=== PATIENT | male | born 1940 | race Caucasian/White ===

== ENCOUNTER 2017-03-19 13:19 | Observation (INO) | payer OTHER ==
[~2017-03-19] VITALS: Ht 182.9 cm; Wt 125.4 kg
[~2017-03-19 13:19] MED LIST: ASPIRIN EC325 MG PO; BYSTOLIC5 MG PO; CELEBREX200 MG PO; Coumadin,Jantoven PO; Cozaar PO; ECOTRIN325 MG PO; FENOFIBRATE160 M1 PO; FENOFIBRATE160 MG PO; FOLIC ACID1 MG PO; LOFIBRA,TRIGLI160 MG PO; LOSARTAN POTAS100 MG PO; LOSARTAN-HCTZ1 EAC1 PO; LYRICA50 MG PO; Lovenox SC; NAPROSYN500 MG PO; NAPROXEN500 MG PO; NORCO 5/3251 TABLET PO; PRILOSEC OTC20 MG PO; PRILOSEC20.6 MG PO; Percocet 5/325,Endoc PO; VITAMIN B-6100 MG PO
[2017-03-19 14:03] LABS: HEMATOCRIT 41.7 % (38.0-50.0); HEMOGLOBIN 13.9 G/DL (12.5-16.6); MCH 32.5 PG (29.0-34.0); MCHC 33.3 G/DL (30.0-36.0); MCV 97.4 FL (86-99); PLATELET COUNT 232 K/uL (156-360); RBC DIS.WIDTH-CV 13.1 % (11.8-14.6); RBC DIS.WIDTH-SD 46.6 % (39-53); RED BLOOD COUNT 4.28 M/uL (4.00-5.50); WHITE BLOOD COUNT 6.6 K/uL (4.1-10.2)
[2017-03-19 14:12] LABS: ALBUMIN 3.9 g/dL (3.2-4.8); CHLORIDE 111 mEq/L (99-109); POTASSIUM 4.6 mEq/L (3.7-5.4); SODIUM 144 mEq/L (136-147)
[2017-03-19 14:14] LABS: GLUCOSE 80 mg/dL (70-99); TOTAL PROTEIN 7.5 g/dL (6.4-8.3)
[2017-03-19 14:16] LABS: TOTAL BILIRUBIN 0.3 mg/dL (0.0-1.0)
[2017-03-19 14:17] LABS: ALKALINE PHOSPHATASE 52 IU/L (3-129)
[2017-03-19 14:18] LABS: CREATININE 1.1 mg/dL (0.6-1.3); GFR ESTIMATE (CALCULATED) > 59 mL/min/ (58.99-99999)
[2017-03-19 14:19] LABS: AST (GOT) 52 IU/L (2-34); UREA NITROGEN (BUN) 27 mg/dL (9-23)
[2017-03-19 14:21] LABS: ALT (GPT) 55 IU/L (3-49)
[2017-03-19 14:24] LABS: TROP-I INTERPRETATION NEGATIVE; TROPONIN-I 0.03 ng/mL (0.0-0.30)
[2017-03-19 17:38] LABS: TROP-I INTERPRETATION NEGATIVE; TROPONIN-I 0.02 ng/mL (0.0-0.30)
[2017-03-19 17:56] LABS: HDL CHOLESTEROL 40 MG/DL (Desirable>=40); LDL CHOLESTEROL 63 mg/dL (Desirable<100); NON-HDL CHOLESTEROL 92 mg/dL (Desirable<160); TOTAL CHOLESTEROL 132 mg/dL (Desirable<200); TRIGLYCERIDES 145 MG/DL (Normal: <150)
[2017-03-19 18:00] VITALS: BP 170/76
[2017-03-19 19:30] VITALS: BP 137/74
[2017-03-19 22:05] LABS: TROP-I INTERPRETATION NEGATIVE; TROPONIN-I < 0.01 ng/mL (0.0-0.30)
[2017-03-20 00:26] VITALS: BP 129/74
[2017-03-20 07:13] LABS: HEMATOCRIT 42.6 % (38.0-50.0); HEMOGLOBIN 13.5 G/DL (12.5-16.6); MCH 31.6 PG (29.0-34.0); MCHC 31.7 G/DL (30.0-36.0); MCV 99.8 FL (86-99); PLATELET COUNT 198 K/uL (156-360); RBC DIS.WIDTH-CV 13.2 % (11.8-14.6); RBC DIS.WIDTH-SD 48.6 % (39-53); RED BLOOD COUNT 4.27 M/uL (4.00-5.50); WHITE BLOOD COUNT 5.1 K/uL (4.1-10.2)
[2017-03-20 07:46] LABS: CHLORIDE 104 MEQ/L (99-109); CREATININE 1.4 MG/DL (0.6-1.3); GFR ESTIMATE (CALCULATED) 52 mL/min/ (58.99-99999); POTASSIUM 4.6 MEQ/L (3.7-5.4); SODIUM 140 MEQ/L (136-147); UREA NITROGEN (BUN) 36 mg/dL (9-23)
[2017-03-20 07:47] VITALS: BP 142/83
[2017-03-20 07:48] LABS: GLUCOSE 122 mg/dL (70-99)
[2017-03-20] MEDS ORDERED: ATORVASTATIN CA40 MG PO (11:01)
[2017-03-20] MEDS ORDERED: LOPRESSOR25 MG PO (11:02)
[2017-03-20 11:21] VITALS: BP 119/61
[2017-03-21 08:32] LABS: HEMOGLOBIN A1c (GLYCOHEMOGLOB) 6.6 % (Below 5.7)
== END 2017-03-20 16:55 | disposition home or self-care (01) ==
LOC: EME 13:19 → 5WEST 17:06 → EDOF 17:06 → ENRESERV 17:07 → 5WEST 17:51
PROVIDERS: Internal Medicine; Nurse Practitioner Family
DX: R07.2 Precordial pain (principal); E66.9 Obesity, unspecified; E78.5 Hyperlipidemia, unspecified; G47.30 Sleep apnea, unspecified; I11.9 Hypertensive heart disease without heart failure; K21.9 Gastro-esophageal reflux disease without esophagitis; N28.9 Disorder of kidney and ureter, unspecified; Z79.82 Long term (current) use of aspirin; Z86.718 Personal history of other venous thrombosis and embolism; M54.9 Dorsalgia, unspecified; M54.6 Pain in thoracic spine; Z86.711 Personal history of pulmonary embolism; Z96.652 Presence of left artificial knee joint
CPT/HCPCS: 71046; 80048; 80053; 80061; 83036; 84484; 85027; 85379; 93005; 99281; 99285; G0378; J1650; J1885; J2270

== ENCOUNTER 2017-07-31 16:18 | Emergency (ER) | payer OTHER ==
[~2017-07-31] VITALS: Ht 185.4 cm; Wt 124.7 kg
[~2017-07-31 16:18] MED LIST changes: +ATORVASTATIN CA40 MG PO; +LOPRESSOR25 MG PO
[2017-07-31 17:00] LABS: HEMOGLOBIN 13.9 G/DL (12.5-16.6); MCH 32.3 PG (29.0-34.0); MCHC 33.1 G/DL (30.0-36.0); MCV 97.7 FL (86-99); PLATELET COUNT 161 K/uL (156-360); WHITE BLOOD COUNT 8.6 K/uL (4.1-10.2)
[2017-07-31 17:23] LABS: TROP-I INTERPRETATION NEGATIVE; TROPONIN-I < 0.01 ng/mL (0.0-0.30)
[2017-07-31 18:36] LABS: CHLORIDE 107 mEq/L (99-109); POTASSIUM 3.9 mEq/L (3.7-5.4); SODIUM 143 mEq/L (136-147)
[2017-07-31 18:38] LABS: GLUCOSE 105 mg/dL (70-99)
[2017-07-31 18:42] LABS: GFR ESTIMATE (CALCULATED) > 59 mL/min/ (58.99-99999)
[2017-07-31 18:43] LABS: UREA NITROGEN (BUN) 24 mg/dL (9-23)
[2017-07-31 20:31] VITALS: BP 144/86
== END 2017-07-31 20:32 | disposition home or self-care (01) ==
LOC: EME 16:18
DX: R07.89 Other chest pain (principal); R06.00 Dyspnea, unspecified; E78.5 Hyperlipidemia, unspecified; I10 Essential (primary) hypertension; K21.9 Gastro-esophageal reflux disease without esophagitis; Z86.711 Personal history of pulmonary embolism; Z96.652 Presence of left artificial knee joint; Z79.82 Long term (current) use of aspirin
CPT/HCPCS: 71046; 71275; 80048; 84484; 85027; 93005; 99281; 99285; J7030